=== PATIENT | male | born 1995 | race Caucasian/White ===

== ENCOUNTER 2017-11-08 14:08 | Emergency (ER) | payer OTHER ==
[~2017-11-08] VITALS: Ht 170.2 cm; Wt 63.5 kg
[~2017-11-08 14:08] MED LIST: MOTRIN PRN PAIN
[2017-11-08 14:13] VITALS: BP 111/58
--- NOTE | 2017-11-08 14:16 | NUR ---
AMBULATES TO BED 6
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
[2017-11-08] MEDS ORDERED: NEOMYCIN/POLYMYXIN/BACITRACIN 0.9 GM/1 PKT TP ONE ×2 (14:35→14:41)
[2017-11-08 14:57] VITALS: BP 101/58
--- NOTE | 2017-11-08 14:57 | NUR ---
Patient discharged with v/s stable. Written and verbal after care instructions given and explained. Patient alert, oriented and verbalized understanding of instructions. Ambulatory with steady gait. All questions addressed prior to discharge. ID band removed. Patient advised to follow up with PMD. Rx of KETOROLAC given. Patient educated on indication of medication including possible reaction and side effects. Opportunity to ask questions provided and answered.
== END 2017-11-08 14:57 | disposition home or self-care (01) ==
LOC: MED 14:08
DX: T23.121A Burn of first degree of single right finger (nail) except thumb, initial encounter (principal); T52.8X1A Toxic effect of other organic solvents, accidental (unintentional), initial encounter; Y92.89 Other specified places as the place of occurrence of the external cause
CPT/HCPCS: 16000; 90471; 90715; 99283; 99284

== ENCOUNTER 2018-01-27 13:37 | Emergency (ER) | payer OTHER ==
[~2018-01-27] VITALS: Ht 167.6 cm; Wt 60.9 kg
[2018-01-27 13:41] VITALS: BP 112/71
[2018-01-27] MEDS ORDERED: hydrOXYzine HCL 25 MG TAB PO ONE (15:40)
[2018-01-27 16:27] VITALS: BP 117/58
[2018-01-27 16:35] LABS: BARBITURATE, URINE NEG. ng/ml (NEG <=200); BENZODIAZEPINE, URINE NEG. ng/mL (NEG <=200); CANNABINOID, URINE POS. ng/mL (NEG <=50); COCAINE, URINE NEG. ng/mL (NEG <=300); OPIATE, URINE NEG. ng/mL (NEG <=2000); PHENCYCLIDINE SCREEN,URINE NEG. ng/mL (NEG <=25)
== END 2018-01-27 16:26 | disposition home or self-care (01) ==
LOC: MED 13:37
DX: F19.10 Other psychoactive substance abuse, uncomplicated (principal)
CPT/HCPCS: 80305; 81002; 99283